=== PATIENT | male | born 1980 | race Caucasian/White ===

== ENCOUNTER 2016-12-14 01:46 | Emergency (ER) | payer BC | END 2016-12-14 02:40 | disposition home or self-care (01) | LOC: ER 01:46 | DX: J02.9 Acute pharyngitis, unspecified (principal); F41.9 Anxiety disorder, unspecified; F32.9 Major depressive disorder, single episode, unspecified; F17.210 Nicotine dependence, cigarettes, uncomplicated; Z88.0 Allergy status to penicillin | CPT/HCPCS: 87651 ==

== ENCOUNTER 2016-12-16 09:43 | Emergency (ER) | payer BC | END 2016-12-16 10:32 | disposition home or self-care (01) | LOC: ER 09:43 | DX: R20.9 Unspecified disturbances of skin sensation (principal); F41.9 Anxiety disorder, unspecified; F32.9 Major depressive disorder, single episode, unspecified; Z87.891 Personal history of nicotine dependence; Z88.0 Allergy status to penicillin ==